=== PATIENT | female | born 1975 | race Hispanic/Latino ===

== ENCOUNTER 2021-12-15 18:04 | Emergency (ER) | payer BC ==
[~2021-12-15] VITALS: Ht 160 cm; Wt 72.6 kg
[2021-12-15] MEDS ORDERED: VENTOLIN HFA18 GM INH (20:21)
[2021-12-15] MEDS ORDERED: PREDNISONE20 MG PO (20:21)
[2021-12-15] MEDS ORDERED: BENZONATATE100 MG PO (20:21)
== END 2021-12-15 21:07 | disposition home or self-care (01) ==
LOC: ED 18:04
DX: J40 Bronchitis, not specified as acute or chronic (principal); Z20.822 Contact with and (suspected) exposure to COVID-19
CPT/HCPCS: 71045; 94640; 99285-25; C9803; J1100; U0003

== ENCOUNTER 2021-12-20 12:40 | Emergency (ER) | payer BC ==
[~2021-12-20] VITALS: Ht 160 cm; Wt 72.6 kg
[~2021-12-20 12:40] MED LIST: BENZONATATE100 MG PO; PREDNISONE20 MG PO; VENTOLIN HFA18 GM INH
--- OUTSIDE RECORDS SUMMARY | 2021-12-20 12:44 | XMS ---
PreManage Notification: DESTIN LICONA Security [place] [employer] Events No recent Security Events currently on file CRITERIA MET - [facility] [place] - 2 Visits in 30 Days CARE PROVIDERS There are no care providers on record at this time. Natalie has no Care Guidelines for this patient. [facility] MO[facility] NOTE: Visits indicate total known visits. ED/C VISIT TRACKING (12 MO.) 12/20/2021 12:42 [facility] See [place] TYPE: Emergency COMPLAINT: - MEDICATION NOT WORKING 12/15/2021 18:05 [facility] [place] TYPE: Emergency COMPLAINT: - COUGH DIAGNOSES: - Bronchitis, not specified as acute or chronic - COUGH, UNSPECIFIED INPATIENT VISIT TRACKING (12 MO.) No inpatient visits to display in this time frame [email or web address]
[2021-12-20] MEDS ORDERED: ZITHROMAX250 MG PO (19:16)
== END 2021-12-20 19:25 | disposition home or self-care (01) ==
LOC: ED 12:40
DX: J20.9 Acute bronchitis, unspecified (principal); Z79.52 Long term (current) use of systemic steroids
CPT/HCPCS: 99283